=== PATIENT | male | born 1940 | race Caucasian/White ===

== ENCOUNTER 2019-07-12 07:02 | Outpatient (CLI) | payer MEDICARE ==
[~2019-07-12 07:02] MED LIST: AMLO-150 PO; AMOX1TAB12; CETI10TA24 PO; ENAL10TA PO; IPRA15SP INH; METO25TA91 PO; NAPR220C2 PO; OMEP20CA9 PO; TAMS0.4C2 PO; TYLENOL PO; VALS80TA3 PO
== END 2019-07-12 23:59 | disposition home or self-care (01) ==
LOC: CVU 07:02
PROVIDERS: ATTEND Internal Medicine Cardiovascular Disease
DX: I08.3 Combined rheumatic disorders of mitral, aortic and tricuspid valves (principal); I77.89 Other specified disorders of arteries and arterioles; I10 Essential (primary) hypertension; I63.89 Other cerebral infarction; I77.2 Rupture of artery
CPT/HCPCS: 93306; 93880

== ENCOUNTER 2020-07-17 08:00 | Outpatient (CLI) | payer MEDICARE ==
[~2020-07-17 08:00] MED LIST changes: -CETI10TA24 PO; +CETI10TA76 PO; -ENAL10TA PO; +ENAL10TA9 PO
[2020-07-17 13:26] LABS: CLOSTRIDIUM DIFFICILE ANTIGEN NEGATIVE; CLOSTRIDIUM DIFFICILE TOXIN NEGATIVE (Negative)
== END 2020-07-17 23:59 | disposition home or self-care (01) ==
LOC: LAB 08:00
PROVIDERS: ATTEND Internal Medicine Gastroenterology
DX: R74.8 Abnormal levels of other serum enzymes (principal); T36.95XA Adverse effect of unspecified systemic antibiotic, initial encounter; Z86.010 Personal history of colon polyps
CPT/HCPCS: 87324; 87493